=== PATIENT | female | born 1955 | race Caucasian/White ===

== ENCOUNTER → 2017-02-02 | Outpatient (CLI) | payer MEDICARE, MEDICAID, SELFPAY | PROVIDERS: Visit Provider Emergency Medicine | DX: R50.9 Fever, unspecified (principal) | CPT/HCPCS: 87275; 87276 ==

== ENCOUNTER → 2018-11-14 14:30 | Outpatient (CLI) | payer MEDICARE, MEDICAID, SELFPAY ==
--- NOTE | 2018-11-14 14:37 | CT_ITS ---
PROCEDURE: CT HEAD/BRAIN WO CON CLINICAL INDICATION: EYE DROOPING,R/O STROKE COMPARISON: No exams were available for comparison TECHNIQUE: Axial images obtained with sagittal and coronal reformats. All CT scans at the facility use one or more dose reduction, viz: automated exposure control, ma/kV adjustment per patient size (including targeted exams where dose is matched to indication, i.e. head), or iterative reconstruction technique. FINDINGS: No midline shift, mass effect, intracranial hemorrhage, hydrocephalus, or extra-axial fluid collection is evident. There is well-defined area of encephalomalacia and leukomalacia involving the insular area on the right side as well as the underlying external capsule, right basal ganglia, right internal capsule and the right caudate nucleus. There secondary trophic changes of the right cerebral peduncle. There is mild generalized prominence of the sulci. The remainder of the cortical areas are normal. Ventricles are normal considering compensatory dilatation of the right lateral ventricle. The calvarium has an unremarkable appearance. No mastoid effusion. There is moderate mucosal thickening in the superior right maxillary sinus. There is no acute osseous process. There is a 4 millimeter round sclerotic density involving the right side of the superior clivus. IMPRESSION: No acute intracranial process. Mild cortical atrophy. 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 Right maxillary sinus mucosal thickening. Clivus small sclerotic density could be bone island however correlate clinically to rule out osteoblastic lesion. Dictated by: Nando Vasquez 11/14/2018 15:15 Electronically signed by Nando Vasquez in [facility] 11/14/2018 15:15
== END ==
PROVIDERS: PCP Emergency Medicine; Visit Provider Emergency Medicine
DX: R29.810 Facial weakness (principal)
CPT/HCPCS: 70450

== ENCOUNTER → 2018-12-27 09:48 | Outpatient (CLI) | payer MEDICARE, MEDICAID, SELFPAY ==
--- NOTE | 2018-12-27 11:34 | XR_ITS ---
PROCEDURE: XR SKULL <4V CLINICAL INDICATION: HEMIPARESIS AFFECTING LT SIDE,SEIZURE DISORDER COMPARISON: CT HEAD/BRAIN WO CON from 11/14/2018 FINDINGS: No fracture or dislocation. No lytic or blastic lesion. On the CT scan there was a small sclerotic focus in the clivus on the right. This is below limits of resolution on this study. IMPRESSION: Negative skull Dictated by: Yovany Lea MD 12/27/2018 16:04 Electronically signed by Yovany Lea MD in [facility] 01/04/2019 18:55
== END ==
PROVIDERS: PCP Emergency Medicine; Visit Provider Psychiatry & Neurology Neurology
DX: I69.354 Hemiplegia and hemiparesis following cerebral infarction affecting left non-dominant side (principal); G40.909 Epilepsy, unspecified, not intractable, without status epilepticus
CPT/HCPCS: 70250; 95819

== ENCOUNTER → 2019-01-04 09:25 | Outpatient (CLI) | payer MEDICARE, MEDICAID, SELFPAY | PROVIDERS: PCP Emergency Medicine; Visit Provider Emergency Medicine | DX: I69.954 Hemiplegia and hemiparesis following unspecified cerebrovascular disease affecting left non-dominant side (principal); G40.909 Epilepsy, unspecified, not intractable, without status epilepticus ==

== ENCOUNTER → 2019-04-04 10:08 | Outpatient (CLI) | payer MEDICARE, MEDICAID, SELFPAY ==
--- NOTE | 2019-04-04 10:10 | CA_ITS ---
APPROVED REPORT EXAM: Comprehensive 2D, Doppler, and color-flow Echocardiogram Health Care Coordinator: Cecilia Callejas RT(R) Ht: 5 ft 2 in Wt: 209lbs BSA: 1.95 BP: 150/80 mmHg Indications: CHF, PERDOMO, smoker, PERDOMO, Hyperlipidemia, wheelchair bound 2D Dimensions LVOT 2.00 cm (M/F) 1.5-2.5 M-Mode Dimensions RVDd 1.70 cm (0.9-2.6) LVDd 5.86 cm (3.5-5.7) LVDs 4.80 cm (3.5-5.7) IVSd 0.81 cm (0.6-1.1) PWd 0.68 cm (0.6-1.1) EF (Teich) 37.00% FS 18.10% EDV (Teich) 170.50 mL ESV (Teich) 107.50 mL LV Diastology E/A Ratio 0.96 Mitral Valve MV A Velocity 102.00 (40-130 cm/s) Left Ventricle Left atrium is mildly enlarged, left ventricle is normal size, there is mild concentric left ventricular hypertrophy, septum is sigmoid configuration, visually estimated ejection fraction 55% with no regional wall motion abnormality. Grade 1 diastolic dysfunction seen without tissue Doppler evidence of raise left atrial pressure. Right Ventricle Right atrium and right ventricle are normal size and contractility. Aortic Valve Aortic valve is thickened and calcified leaflet continue to display mobility, there is no aortic stenosis or aortic insufficiency. Mitral Valve Mitral valve is grossly normal, there is mild mitral regurgitation. Tricuspid Valve Tricuspid valve is grossly normal, there is mild tricuspid regurgitation. Tricuspid regurgitation jet velocity is inadequate for calculation of the right ventricular systolic pressure. Pulmonic Valve Pulmonic valve is poorly visualized. Great Vessels Aortic root is normal size. Pericardium No significant pericardial effusion noted. Conclusion 1. Mildly enlarged left atrium, normal left ventricular size, mild concentric left ventricular hypertrophy, visually estimated ejection fraction 55% with no regional wall motion abnormality, grade 1 diastolic dysfunction seen without tissue Doppler evidence of raise left atrial pressure. 2. Mild mitral and tricuspid regurgitation. 3. No significant pericardial effusion noted. Electronically signed by : Rafal Castillo, 04/05/2019 06:28:44
== END ==
PROVIDERS: PCP Emergency Medicine; Visit Provider Urology
DX: R06.00 Dyspnea, unspecified (principal); I50.9 Heart failure, unspecified; I25.10 Atherosclerotic heart disease of native coronary artery without angina pectoris; E78.5 Hyperlipidemia, unspecified; I69.954 Hemiplegia and hemiparesis following unspecified cerebrovascular disease affecting left non-dominant side; R60.0 Localized edema
CPT/HCPCS: 93306

== ENCOUNTER → 2019-05-02 13:23 | Outpatient (CLI) | payer MEDICARE, MEDICAID, SELFPAY ==
[2019-05-02 13:43] LABS: Microscopic, Urine URINE MICROSCOPIC (MICROSCOPIC)
[2019-05-02 14:57] LABS: Appearance,Urine CLEAR (Clear); Bilirubin,Urine Negative (Negative); Blood, Urine Negative (Negative); Color,Urine YELLOW (Yellow); Glucose,Urine (UA) Negative (Negative); Ketones,Urine Negative (Negative); Leukocyte Esterase,Urine Negative (Negative); Nitrate,Urine Negative (Negative); Protein,Urine 2+ (Negative); Specific Gravity, Urine >= 1.030 (1.005-1.030); Urobilinogen,Urine 0.2 EU/dl (0.2)
[2019-05-02 15:11] LABS: Hyaline Casts,Urine Occasional #/lpf (0)
[2019-05-02 15:13] LABS: Benzodiazepines Screen,Urine Negative ng/ml (<200)
[2019-05-02 15:14] LABS: Amphetamine/Metha Screen,Urine Negative ng/ml (<1000); Barbiturates Screen,Urine Negative ng/ml (<200)
[2019-05-02 15:15] LABS: Cannabinoid Screen,Urine Positive ng/ml (<50)
[2019-05-02 15:16] LABS: Cocaine Screen,Urine Negative ng/ml (<300); Methadone Screen,Urine Negative ng/ml (<300)
[2019-05-02 15:17] LABS: Opiate Screen,Urine Positive ng/ml (<300); Phencyclidine Screen,Urine Negative ng/ml (<25)
== END ==
PROVIDERS: Visit Provider Emergency Medicine
DX: Z79.899 Other long term (current) drug therapy (principal)
CPT/HCPCS: 80305; 81001